=== PATIENT | male | born 1980 | race Caucasian/White ===

== ENCOUNTER 2022-11-27 19:52 | Outpatient (CLI) | payer SELFPAY | END 2022-11-27 19:53 | disposition critical access hospital (66) | LOC: EMS 19:52 | DX: R41.0 Disorientation, unspecified (principal); R47.1 Dysarthria and anarthria; R00.0 Tachycardia, unspecified | CPT/HCPCS: A0425; A0429 ==

== ENCOUNTER 2022-11-27 20:11 | Emergency (ER) | payer SELFPAY ==
--- NOTE | 2022-11-27 20:12 | ED Physician Documentation ---
PD HPI FOCAL NEURO - Stated complaint Stated Complaint: AMS - History obtained from History obtained from: Patient - Additional information Additional information: EVIE. HPI from patient as well as from EMS. Patient [place] [employer] [place] this [place] when, at approximately 7:30 PM, he experienced sudden onset of expressive aphasia. No inciting event (was walking towards a table carrying a beer). The patient tells me he felt that he was mentating normally, forming normal thoughts, but was unable to make any sounds verbally. He estimates he could not speak for approximately 15 minutes. Subsequently, he was gradually able to speak, initially was speaking gibberish (again, despite mentating normally and feeling frustration that he could not speak the thoughts he was having). EMS arrived and did note patient was having difficulty forming coherent sentences but was following commands and his actions and expressions were consistent with someone mentating normally. By the time he arrives to ED he has returned to baseline. Patient tells me he has mild, generalized SANCHEZ and feels like he is still speaking "a little bit slower" (per patient) than normal for him. He denies history of similar symptoms. He denies injury including head injury. Review of Systems Constitutional: reports: Reviewed and negative Eyes: reports: Reviewed and negative Cardiac: reports: Reviewed and negative Respiratory: reports: Reviewed and negative GI: reports: Reviewed and negative Musculoskeletal: reports: Reviewed and negative Neurologic: reports: Difficulty speaking, Headache (mild, generalized). denies: Generalized weakness, Focal weakness, Numbness, Confused, Altered mental status, LOC PD PAST MEDICAL HISTORY - Past Medical History Past Medical History: Yes Psych: ADD/ADHD - Present Medications Home Medications: Ambulatory Orders Medication Instructions Recorded Confirmed Home Medications Unobtainable 11/27/22 11/27/22 [HOME MEDICATIONS UNOBTAINABLE] - Allergies Allergies/Adverse Reactions: Allergies Allergy/AdvReac Type Severity Reaction Status Date / Time No Known Drug Allergies Allergy Verified 11/27/22 21:34 PD ED PE NORMAL - Vitals Vital signs reviewed: Yes - General General: Alert and oriented X 3, No acute distress, Well developed/nourished - HEENT HEENT: Atraumatic, PERRL, EOMI, Moist mucous membranes - Neck Neck: Supple, no meningeal sign - Cardiac Cardiac: No murmur - Respiratory Respiratory: No respiratory distress, Clear bilaterally - Abdomen Abdomen: Soft, Non tender - Neuro Neuro: Alert and oriented X 3, 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, No motor deficit, No sensory deficit, Normal speech Eye Opening: Spontaneous Motor: Obeys Commands Verbal: Oriented GCS Score: 15 PD ED PE EXPANDED - Cardiac Cardiac: Tachy, Regular Rhythm NIHSS - Level of Consciousness Level of consciousness: (0) Alert, Keenly responsive LOC Questions: (0) Answers both Q's correct LOC Commands: (0) Performs both correctly - Gaze Best Gaze: (0) Normal - Visual Visual: (0) No loss - Facial Palsy Facial Palsy: (0) Normal, symmetrical movement - Motor Arms (both separate) Motor Arm (right): (0) No drift Motor Arm (left): (0) No drift - Motor Legs (both separate) Motor Leg (right): (0) No drift Motor Leg (left): (0) No drift - Limb Ataxia Limb Ataxia: (0) Absent - Sensory Sensory: (0) Normal - Best Language Best Language: (0) No aphasia - Dysarthria Dysarthria: (0) Normal - Extinction and Inattention (formally neg Extinction and inattention: (0) No abnormality - Total Score/Results Total Score/Result: 0 Results - Vitals Vitals: Vital Signs - 24 hr 11/27/22 11/27/22 11/27/22 20:44 21:00 21:29 Temperature 37.2 C Heart Rate 124 H 120 H 106 H Respiratory 15 16 14 Rate Blood Pressure 157/116 H 167/129 H 150/114 H O2 Saturation 99 96 11/27/22 22:30 Temperature Heart Rate 110 H Respiratory 17 Rate Blood Pressure 158/119 H O2 Saturation 97 Oxygen O2 Source Room air - EKG (time done) No standard instances EKG releavant findings:: EKG personally interpreted by author of this note. Relevant findings are: Rate: Rate (enter#) (120), Tachy Rhythm: Sinus tachycardia Perry: Normal Intervals: Normal PA QRS: Normal Ischemia: Normal ST segments - Labs Labs: Laboratory Tests 11/27/22 11/27/22 11/27/22 20:39 20:45 20:45 WBC 9.8 RBC 5.44 Hgb 17.1 Hct 49.6 MCV 91.2 MCH 31.4 H MCHC 34.5 RDW 11.7 L Plt Count 264 MPV 10.1 Neut # (Auto) 7.4 H Lymph # (Auto) 1.3 L Mills # (Auto) 0.9 Eos # (Auto) 0.1 Baso # (Auto) 0.1 Absolute Nucleated RBC 0.00 Nucleated RBC % 0.0 PT INR APTT Sodium 136 Potassium 3.8 Chloride 103 Carbon Dioxide 26 Anion Gap 7.0 BUN 11 Creatinine 1.4 H Estimated GFR (MDRD) 55 L Glucose 96 Calcium 8.7 Total Bilirubin 0.6 AST 43 H ALT 60 Alkaline Phosphatase 60 Total Protein 7.0 Albumin 4.2 Globulin 2.8 Albumin/Globulin Ratio 1.5 Lipase 32 Urine Opiates Screen NEGATIVE Ur Oxycodone Screen NEGATIVE Urine Methadone Screen NEGATIVE Ur Propoxyphene Screen NEGATIVE Ur Barbiturates Screen NEGATIVE Ur Tricyclics Screen NEGATIVE Ur Phencyclidine Scrn NEGATIVE Ur Amphetamine Screen POSITIVE H U Methamphetamines Scrn NEGATIVE U Benzodiazepines Scrn NEGATIVE Urine Cocaine Screen NEGATIVE U Cannabinoids Screen NEGATIVE Ethyl Alcohol < 10.0 11/27/22 20:45 WBC RBC Hgb Hct MCV MCH MCHC RDW Plt Count MPV Neut # (Auto) Lymph # (Auto) Mills # (Auto) Eos # (Auto) Baso # (Auto) Absolute Nucleated RBC Nucleated RBC % PT 11.5 INR 1.1 APTT 27.4 Sodium Potassium Chloride Carbon Dioxide Anion Gap BUN Creatinine Estimated GFR (MDRD) Glucose Calcium Total Bilirubin AST ALT Alkaline Phosphatase Total Protein Albumin Globulin Albumin/Globulin Ratio Lipase Urine Opiates Screen Ur Oxycodone Screen Urine Methadone Screen Ur Propoxyphene Screen Ur Barbiturates Screen Ur Tricyclics Screen Ur Phencyclidine Scrn Ur Amphetamine Screen U Methamphetamines Scrn U Benzodiazepines Scrn Urine Cocaine Screen U Cannabinoids Screen Ethyl Alcohol - Rads (name of study) CTH Relevant Findings:: Prelim report reviewed, See rad report CTA head Relevant Findings:: Prelim report reviewed, See rad report CTA neck Relevant Findings:: Prelim report reviewed, See rad report PD Medical Decision Making - ED course Complexity details: reviewed results, re-evaluated patient, considered differential, d/w patient ED course: Patient is brought in by ambulance. I met the ambulance in the ambulance bay and after brief discussion with EMS I instructed them to drive around to the CT scan for immediate CT head, CTA head/neck. Briefly introduced myself to the patient and explained that we would be getting the studies because of his difficulty speaking. I did not perform exam at that time, as patient was still on the stretcher in the ambulance, and for the purpose of expediting transport of patient around the hospital to the CT scanner. There were no concerning findings on lidya's tests, including blood test, EKG, CT head, CTA head and neck. After the patient returned from CT, I performed an NIHSS exam, with a resulting score of 0. The patient tells me that he feels completely back to baseline at the time of my exam. His drug screen is positive for amphetamines but not methamphetamines, I suspect this is due to to a false positive from his bupropion. The patient's description of lidya's events is that of expressive aphasia, and I explained to him that I suspect he had a TIA (I explained this diagnosis, as well). Given that his symptoms have completely resolved, it is reasonable to discharge him home at this time with careful return precautions discussed and I also instructed him to follow-up with his primary care provider, next available appointment, even if symptoms do not recur. The patient seems to be convinced that ildya's event was a side effect of his new medication (buspirone). I explained that I think this is unlikely, as this does not seem to be a typical side effect of this medication, but, more compelling is the relative rapidity of resolution. Nonetheless, the patient says he will not take any more of the buspirone, and says he will follow-up with his primary care provider. Departure - Departure Disposition: 01 Home, Self Care Clinical Impression: TIA (transient ischemic attack) Condition: Good Instructions: ED Transient Ischemic Attack Comments: There were no concerning or diagnostic findings on tonkellie's test, including the blood test, EKG, and the CT scans of your head and neck. However, the description of the event is suggestive of a transient ischemic attack. Within this discharge packet or instructions and a brief review of the diagnosis of transient ischemic attack. I strongly recommend that you follow-up with your primary care provider as soon as you can arrange. Even if you are feeling well, further testing might be necessary (at your doctor's discretion, such as an MRI of your brain). I recommend that you take a daily aspirin 325 mg until you are instructed otherwise. Forms: PCP List Discharge Date/Time: 11/27/22 23:20
[2022-11-27 20:49] LABS: BASOPHILS # (AUTO) 0.1 10^3/uL (0.0-0.1); BASOPHILS % (AUTO) 0.5 %; EOSINOPHILS # (AUTO) 0.1 10^3/uL (0.0-0.7); EOSINOPHILS % (AUTO) 0.9 %; HCT - HEMATOCRIT 49.6 % (42.0-52.0); HGB - HEMOGLOBIN 17.1 g/dL (14.0-18.0); LYMPHOCYTES # (AUTO) 1.3 10^3/uL (1.5-3.5); LYMPHOCYTES % (AUTO) 13.2 %; MEAN CORPUSCULAR HEMOGLOBIN 31.4 pg (27.0-31.0); MEAN CORPUSCULAR HGB CONC 34.5 g/dL (32.0-36.0); MEAN CORPUSCULAR VOLUME 91.2 fL (80.0-94.0); MEAN PLATELET VOLUME 10.1 fL (7.4-11.4); MONOCYTES # (AUTO) 0.9 10^3/uL (0.0-1.0); MONOCYTES % (AUTO) 9.6 %; NEUTROPHILS # (AUTO) 7.4 10^3/uL (1.5-6.6); NEUTROPHILS % (AUTO) 74.9 %; PLT - PLATELET COUNT 264 10^3/uL (130-450); RED BLOOD COUNT 5.44 10^6/uL (4.70-6.10); RED CELL DISTRIBUTION WIDTH 11.7 % (12.0-15.0); WHITE BLOOD COUNT 9.8 x10^3/uL (4.8-10.8)
--- NOTE | 2022-11-27 20:49 | CT Report ---
PROCEDURE: Head W/O Stroke Protocol INDICATIONS: expressive aphasia TECHNIQUE: Noncontrast 4.5 mm thick angled axial sections acquired from the foramen magnum to the vertex, with c oronal reformats. For radiation dose reduction, the following was used: automated exposure control, adjustment of mA and/or kV according to patient size. COMPARISON: None. FINDINGS: Image quality: Excellent. CSF spaces: Basal cisterns are patent. No extra-axial fluid collections. Ventricles are normal in size and shape. Brain: No midline shift. No intracranial masses or hemorrhage. Ellis-white matter interface is norm al. Skull and face: Calvarium and visualized facial bones are intact, without suspicious lesions. Sinuses: Mild mucosal thickening left maxillary sinus is seen. Bilateral mastoids are well aerated. IMPRESSION: No acute intracranial pathology Findings were discussed with ordering provider on 11/27/2022 at 8:45 PM. This study fulfills neurological imaging criteria for inclusion or exclusion of acute stroke therapie s based on available published neurological imaging guidelines. Reviewed by: Wander Sam MD on 11/27/2022 8:47 PM PDT Approved by: Wander Sam MD on 11/27/2022 8:47 PM PDT Station ID: [id number]
[2022-11-27 20:54] LABS: MUDS CUTOFF CONCENTRATIONS CUTOFF CONC BELOW:
--- NOTE | 2022-11-27 20:56 | CT Report ---
PROCEDURE: CT Angio Head/Neck INDICATIONS: expressive aphasia TECHNIQUE: After the administration of intravenous contrast, 1 mm thick sections acquired from the aortic arch t hrough the [place]. 3-dimensional apcymje-tdrkwogek-lbksufnrgf (MIP) and/or volume renderin g reformats were acquired of the central intracranial vasculature and neck separately. For radiation dose reduction, the following was used: automated exposure control, adjustment of mA and/or kV acco rding to patient size. COMPARISON: CT head from the same day. FINDINGS: Image quality: Diagnostic. HEAD CT: CSF Spaces: Basal cisterns are patent. No extra-axial fluid collections. Ventricles are normal in size and shape. Brain: The brain is within normal limits for age and scanning technique. No area of abnormal intrac ranial enhancement. Skull and face: Calvarium and visualized facial bones appear intact, without suspicious lesions. Sinuses: Mild mucosal thickening in left maxillary sinus is seen. HEAD CT ANGIOGRAPHY: Anterior circulation: Intracranial internal carotid arteries are normal in size and flow. The flow within the paired anterior cerebral arteries is normal and symmetric. The flow within the middle cer ebral arteries is normal and symmetric. The anterior communicating artery is seen. No aneurysms are seen. Posterior circulation: Visualized portions of the vertebral arteries demonstrate normal caliber, and join to form a normal appearing basilar artery. Flow within the posterior cerebral arteries is norm al and symmetric. No aneurysms are seen. NECK CT ANGIOGRAPHY: Carotid system: The great vessels demonstrate a conventional anatomy as they arise from the aortic a rch. The origins of the common carotid arteries appear patent. The common carotid arteries demonstr ate normal caliber and courses. The bifurcation regions are both widely patent. The internal caroti d arteries demonstrate normal calibers and courses. Posterior circulation: The origins of the vertebral arteries both appear widely patent. The more dale perior extracranial portions of both vertebral arteries also demonstrate normal courses and calibers. They join to form a normal appearing basilar artery. Soft tissues: Visualized neck soft tissues demonstrate no suspicious abnormalities. Bones: No suspicious bony lesions. Visualized cervical spine appears normally aligned. IMPRESSION: 1. No area of abnormal intracranial enhancement. 2. No hemodynamically significant stenosis or aneurysm is seen in the intracranial circulation. 3. No hemodynamically significant stenosis or aneurysm is seen in bilateral neck arteries. The estimate of stenosis included in the report of the imaging study was calculated using the NASCET method Reviewed by: Wander Sam MD on 11/27/2022 8:55 PM PDT Approved by: Wander Sam MD on 11/27/2022 8:55 PM PDT Station ID: [id number]
[2022-11-27 21:01] LABS: ALBUMIN 4.2 g/dL (3.2-5.5); ALBUMIN/GLOBULIN RATIO 1.5 (1.0-2.2); ALKALINE PHOSPHATASE 60 IU/L (42-121); ALT ALANINE AMINOTRANSFERASE 60 IU/L (10-60); AST ASPARTATE AMINOTRANSFERASE 43 IU/L (10-42); BILIRUBIN,TOTAL 0.6 mg/dL (0.2-1.0); BUN - BLOOD UREA NITROGEN 11 mg/dL (6-20); CALCIUM 8.7 mg/dL (8.5-10.3); CARBON DIOXIDE - CO2 26 mmol/L (21-32); CHLORIDE 103 mmol/L (101-111); CREATININE 1.4 mg/dL (0.6-1.2); ETOH - ETHANOL < 10.0 mg/dL; GFR - MDRD 55 (>89); GLUCOSE 96 mg/dL (70-100); INR 1.1 (0.8-1.2); LIPASE 32 U/L (22-51); POTASSIUM 3.8 mmol/L (3.5-5.0); PT - PROTHROMBIN TIME 11.5 secs (9.9-12.6); SODIUM 136 mmol/L (135-145)
[2022-11-27 21:06] LABS: AMPHETAMINE SCREEN,URINE POSITIVE (NEGATIVE); BARBITURATE SCREEN,UR NEGATIVE (NEGATIVE); BENZODIAZEPINES SCREEN, URINE NEGATIVE (NEGATIVE); COCAINE SCREEN URINE NEGATIVE (NEGATIVE); METHADONE SCREEN, URINE NEGATIVE (NEGATIVE); METHAMPHETAMINES SCREEN, URINE NEGATIVE (NEGATIVE); OPIATE SCREEN, URINE NEGATIVE (NEGATIVE); OXYCODONE SCREEN, URINE NEGATIVE (NEGATIVE); PROPOXYPHENE SCREEN, URINE NEGATIVE (NEGATIVE); THC CANNABINOID SCREEN, URINE NEGATIVE (NEGATIVE); TRICYCLIC ANTIDEPRESSANT,URINE NEGATIVE (NEGATIVE)
[2022-11-27 21:08] LABS: PARTIAL THROMBOPLASTIN TIME 27.4 secs (24.9-33.3)
[2022-11-27] MEDS ORDERED: iohexoL-300 100 ML VIAL IVP ONE (22:45)
[2022-11-27 23:19] VITALS: BP 158/119; O2SAT 97
== END 2022-11-27 23:20 | disposition home or self-care (01) ==
LOC: ED 20:11
DX: G45.9 Transient cerebral ischemic attack, unspecified (principal)
CPT/HCPCS: 36415; 70450; 70496; 70498; 80053; 80306; 80320; 83690; 85025; 85610; 85730; 93005; 99284; Q9967